=== PATIENT | female | born 1990 | race Hispanic/Latino ===

== ENCOUNTER 2018-04-26 21:35 | Emergency (ER) | payer MEDICAID ==
[2018-04-26 22:14] LABS: BASOPHILS % (AUTO) 0.5 % (0.0-5.0); EOSINOPHILS % (AUTO) 0.8 % (0.0-8.0); HEMATOCRIT 41.1 % (36-48); LYMPHOCYTES % (AUTO) 19.6 % (21.0-51.0); MEAN CORPUSCULAR HEMOGLOBIN 28.4 pg (27.0-33.0); MEAN CORPUSCULAR HGB CONC 32.8 g/dL (32.0-36.0); MEAN CORPUSCULAR VOLUME 86.7 fL (79-99); MONOCYTES % (AUTO) 6.1 % (3.0-13.0); PLATELET COUNT (AUTO) 299 K/uL (130-400); RED BLOOD CELL COUNT(AUTO) 4.74 MIL/uL (4.00-5.50); RED CELL DISTRIBUTION WIDTH 13.9 % (11.0-15.5); WHITE BLOOD COUNT (AUTO) 10.1 K/uL (4.8-10.8)
[2018-04-26 22:24] LABS: CREATININE 0.6 mg/dL (0.5-1.5); POTASSIUM 3.7 mmol/L (3.5-5.1)
[2018-04-26 22:49] LABS: ALBUMIN 3.6 g/dL (3.5-5.0); BILIRUBIN,TOTAL 0.3 mg/dL (0.2-1.0); TOTAL PROTEIN, SERUM 7.9 g/dL (6.0-8.3)
== END 2018-04-26 23:37 | disposition home or self-care (01) ==
LOC: EDH 21:35
DX: O20.9 Hemorrhage in early pregnancy, unspecified (principal); Z3A.08 8 weeks gestation of pregnancy; Z90.49 Acquired absence of other specified parts of digestive tract
CPT/HCPCS: 36415; 76801; 80053; 84702; 85025

== ENCOUNTER 2018-05-01 10:23 | Emergency (ER) | payer MEDICAID ==
[2018-05-01] MEDS ORDERED: SODIUM CHLORIDE 0.9% 1000ML 1,000 ML IV ONE (10:49)
[2018-05-01] MEDS ORDERED: ONDANSETRON HCL 4 MG/2 ML VIAL ONE (10:49)
[2018-05-01 11:10] LABS: CREATININE 0.7 mg/dL (0.5-1.5); POTASSIUM 4.1 mmol/L (3.5-5.1)
[2018-05-01 11:20] LABS: BASOPHILS % (AUTO) 0.6 % (0.0-5.0); EOSINOPHILS % (AUTO) 1.3 % (0.0-8.0); HEMATOCRIT 36.9 % (36-48); LYMPHOCYTES % (AUTO) 19.3 % (21.0-51.0); MEAN CORPUSCULAR HEMOGLOBIN 29.9 pg (27.0-33.0); MEAN CORPUSCULAR HGB CONC 34.4 g/dL (32.0-36.0); MEAN CORPUSCULAR VOLUME 86.7 fL (79-99); MONOCYTES % (AUTO) 5.7 % (3.0-13.0); NEUTROPHILS % (AUTO) 73.1 % (40.0-77.0); NUCLEATED RED BLOOD CELLS 0.1 % (0.0-0.19); PLATELET COUNT (AUTO) 349 K/uL (130-400); RED BLOOD CELL COUNT(AUTO) 4.25 MIL/uL (4.00-5.50); RED CELL DISTRIBUTION WIDTH 14.2 % (11.0-15.5); WHITE BLOOD COUNT (AUTO) 10.5 K/uL (4.8-10.8)
[2018-05-01] MEDS ORDERED: ACETAMINOPHEN 120 MG SUPPOSITORY RC ONE (13:12)
[2018-05-01] MEDS ORDERED: LORAZEPAM 2 MG/ML 1 ML VIAL ONE (13:12)
== END 2018-05-01 13:04 | disposition home or self-care (01) ==
LOC: EDH 10:23
DX: O03.9 Complete or unspecified spontaneous abortion without complication (principal); Z3A.09 9 weeks gestation of pregnancy
CPT/HCPCS: 36415; 76817; 80048; 84702; 85025; 86850; 86900; 86901; 96361; 96374; 99285; J2405; J7030; J2060

== ENCOUNTER 2018-07-08 05:22 | Emergency (ER) | payer MEDICAID ==
[2018-07-08] MEDS ORDERED: LIDOCAINE HCL 2% VISCOUS 15 ML UDCUP ONE (06:18)
[2018-07-08] MEDS ORDERED: PENICILLIN G BENZATHINE LA 1.2 MILUNITS/2 ML SYG ONE (06:24)
== END 2018-07-08 06:46 | disposition home or self-care (01) ==
LOC: EDH 05:22
DX: J02.9 Acute pharyngitis, unspecified (principal); Z90.49 Acquired absence of other specified parts of digestive tract
CPT/HCPCS: 96372; 99283; J0561

== ENCOUNTER 2019-03-15 00:29 | Emergency (ER) | payer MEDICAID, OTHER ==
[2019-03-15] MEDS ORDERED: PREDNISONE 20 MG TABLET ONE (01:12)
== END 2019-03-15 01:25 | disposition home or self-care (01) ==
LOC: EDH 00:29
DX: L24.9 Irritant contact dermatitis, unspecified cause (principal)

== ENCOUNTER 2019-12-21 19:17 | Emergency (ER) | payer MEDICAID, OTHER ==
[2019-12-21 19:48] LABS: APPEARANCE,URINE Cloudy (CLEAR); BILIRUBIN,URINE Negative (NEGATIVE); COLOR,URINE Yellow (YELLOW); GLUCOSE, URINE (UA) Negative (NEGATIVE); KETONES,URINE Trace mg/dL (NEGATIVE); LEUKOCYTE ESTERASE ,URINE Large (NEGATIVE); NITRATE,URINE Negative (NEGATIVE); OCCULT BLOOD,URINE Large (NEGATIVE); PH,URINE 6.5 (5.0-8.0); PROTEIN,URINE Negative (NEGATIVE)
[2019-12-21 20:04] LABS: BASOPHILS % (AUTO) 0.3 % (0.0-5.0); EOSINOPHILS % (AUTO) 1.5 % (0.0-8.0); HEMATOCRIT 39.3 % (36-48); LYMPHOCYTES % (AUTO) 24.9 % (21.0-51.0); MEAN CORPUSCULAR HEMOGLOBIN 28.8 pg (27.0-33.0); MEAN CORPUSCULAR HGB CONC 33.6 g/dL (32.0-36.0); MEAN CORPUSCULAR VOLUME 85.6 fL (79-99); NEUTROPHILS % (AUTO) 66.9 % (40.0-77.0); PLATELET COUNT (AUTO) 346 K/uL (130-400); RED BLOOD CELL COUNT(AUTO) 4.59 MIL/uL (4.00-5.50); RED CELL DISTRIBUTION WIDTH 13.2 % (11.0-15.5); WHITE BLOOD COUNT (AUTO) 9.8 K/uL (4.8-10.8)
[2019-12-21 20:14] LABS: BACTERIA,URINE Few /HPF (None Seen)
[2019-12-21 20:15] LABS: SQUAMOUS EPITHELIAL CELL,UR Moderate /HPF (0-2)
[2019-12-21 20:16] LABS: MUCUS,URINE Few LPF (None Seen)
[2019-12-21 20:16] LABS: CREATININE 0.8 mg/dL (0.5-1.5); POTASSIUM 3.5 mmol/L (3.5-5.1)
[2019-12-21 20:19] LABS: INR 0.95 (0.85-1.15); PARTIAL THROMBOPLASTIN TIME 28.2 SEC (26.3-35.5); PROTHROMBIN TIME 10.3 SEC (9.6-11.6)
[2019-12-21 20:27] LABS: ALBUMIN 3.8 g/dL (3.5-5.0); BILIRUBIN,TOTAL 0.2 mg/dL (0.2-1.0); TOTAL PROTEIN, SERUM 7.9 g/dL (6.0-8.3)
== END 2019-12-21 22:05 | disposition home or self-care (01) ==
LOC: EDH 19:17
DX: O20.0 Threatened abortion (principal); Z3A.01 Less than 8 weeks gestation of pregnancy; Z90.49 Acquired absence of other specified parts of digestive tract
CPT/HCPCS: 36415; 76801; 80053; 81001; 84702; 85025; 85610; 85730; 86900; 86901; 87088

== ENCOUNTER 2020-08-12 10:31 | Observation (INO) | payer MEDICAID ==
[~2020-08-12] VITALS: Ht 149.9 cm; Wt 89.8 kg
[2020-08-12 11:05] LABS: APPEARANCE,URINE CLOUDY (CLEAR); BILIRUBIN,URINE NEGATIVE (NEGATIVE); COLOR,URINE YELLOW (YELLOW); GLUCOSE, URINE (UA) NEGATIVE (NEGATIVE); KETONES,URINE NEGATIVE (NEGATIVE); LEUKOCYTE ESTERASE ,URINE MODERATE (NEGATIVE); NITRATE,URINE NEGATIVE (NEGATIVE); OCCULT BLOOD,URINE NEGATIVE (NEGATIVE); PROTEIN,URINE NEGATIVE (NEGATIVE); UROBILINOGEN,URINE 0.2 mg/dL (0.2-1.0)
[2020-08-12 11:30] LABS: BACTERIA,URINE Moderate /HPF (None Seen); RBC,URINE 0-1 /HPF (0-1); SQUAMOUS EPITHELIAL CELL,UR Moderate /HPF (0-2)
== END 2020-08-12 11:48 | disposition home or self-care (01) ==
LOC: EDH 10:31 → LDH 10:32
PROVIDERS: ADMIT Specialist; ATTEND Specialist
DX: O62.9 Abnormality of forces of labor, unspecified (principal); Z90.49 Acquired absence of other specified parts of digestive tract; Z3A.38 38 weeks gestation of pregnancy
CPT/HCPCS: 59025; 81001; 87088; 99284; G0378

== ENCOUNTER 2020-08-20 10:38 | Inpatient (IN) | payer MEDICAID ==
[~2020-08-20] VITALS: Ht 157.5 cm; Wt 101.2 kg
[2020-08-20] MEDS ORDERED: LACTATED RINGERS 1000ML 1,000 ML IV ONE (10:58)
[2020-08-20 11:27] LABS: APPEARANCE,URINE Clear (CLEAR); BILIRUBIN,URINE Negative (NEGATIVE); COLOR,URINE Yellow (YELLOW); GLUCOSE, URINE (UA) Negative (NEGATIVE); KETONES,URINE Negative (NEGATIVE); LEUKOCYTE ESTERASE ,URINE Small (NEGATIVE); NITRATE,URINE Negative (NEGATIVE); OCCULT BLOOD,URINE Small (NEGATIVE); PH,URINE 7.5 (5.0-8.0); PROTEIN,URINE Negative (NEGATIVE); UROBILINOGEN,URINE 0.2 mg/dL (0.2-1.0)
[2020-08-20 11:38] LABS: BACTERIA,URINE Few /HPF (None Seen); RBC,URINE 0-1 /HPF (0-1); SQUAMOUS EPITHELIAL CELL,UR Moderate /HPF (0-2)
[2020-08-20 11:39] LABS: BASOPHILS % (AUTO) 0.2 % (0.0-5.0); EOSINOPHILS % (AUTO) 0.7 % (0.0-8.0); HEMATOCRIT 34.1 % (36-48); MEAN CORPUSCULAR HEMOGLOBIN 25.8 pg (27.0-33.0); MEAN CORPUSCULAR HGB CONC 32.3 g/dL (32.0-36.0); MEAN CORPUSCULAR VOLUME 79.9 fL (79-99); MONOCYTES % (AUTO) 6.6 % (3.0-13.0); NEUTROPHILS % (AUTO) 77.3 % (40.0-77.0); PLATELET COUNT (AUTO) 284 K/uL (130-400); RED BLOOD CELL COUNT(AUTO) 4.27 MIL/uL (4.00-5.50); RED CELL DISTRIBUTION WIDTH 14.7 % (11.0-15.5); WHITE BLOOD COUNT (AUTO) 9.6 K/uL (4.8-10.8)
[2020-08-20 11:51] LABS: INR 0.95 (0.85-1.15); PROTHROMBIN TIME 10.2 SEC (9.6-11.6)
[2020-08-20 11:52] LABS: PARTIAL THROMBOPLASTIN TIME 25.2 SEC (26.3-35.5)
[2020-08-20 11:54] LABS: ALBUMIN 2.3 g/dL (3.5-5.0); BILIRUBIN,TOTAL 0.1 mg/dL (0.2-1.0); CREATININE 0.6 mg/dL (0.5-1.5); TOTAL PROTEIN, SERUM 6.8 g/dL (6.0-8.3); URIC ACID 4.9 mg/dL (2.6-7.2)
[2020-08-20] MEDS ORDERED: LACTATED RINGERS 500 ML 500 ML IV PRN (18:45)
[2020-08-20] MEDS ORDERED: EPHEDRINE SULFATE 50 MG/ML AMPULE IVP PRN (18:45)
[2020-08-20] MEDS ORDERED: NALOXONE HCL 0.4 MG/1 ML ML IV PRN (18:45)
[2020-08-20 19:30] VITALS: BP 106/54
[2020-08-20] MEDS: LACTATED RINGERS 1000ML 1,000 ML IV PRN (20:19)
[2020-08-21] MEDS ORDERED: MEPERIDINE-PF 50 MG/ML SYG IVP ONE (00:15)
[2020-08-21] MEDS ORDERED: MEPERIDINE-PF 50 MG/ML SYG ONE (00:16)
[2020-08-21] MEDS: PROMETHAZINE HCL 25 MG/ML 1ML AMPULE IM SCH (00:25)
[2020-08-21] MEDS: LACTATED RINGERS 1000ML 1,000 ML IV PRN ×2 (01:15→22:27)
[2020-08-21] MEDS ORDERED: CEFAZOLIN SODIUM 1 GM VIAL ONE (08:42)
[2020-08-21] MEDS ORDERED: CEFAZOLIN SODIUM 1 GM VIAL IVP PRN (08:45)
[2020-08-21] MEDS ORDERED: CEFAZOLIN SODIUM 1 GM VIAL IVP ONE (08:58)
[2020-08-21] MEDS ORDERED: MORPHINE PF 100MG/10ML AMP IV ONE (08:59)
[2020-08-21] MEDS ORDERED: FENTANYL CITRATE PF 50 MCG/1 ML 2ML VIAL ONE ×2 (09:10→09:22)
[2020-08-21] MEDS ORDERED: MIDAZOLAM HCL 1 MG/ML 2ML VIAL ONE (09:11)
[2020-08-21 09:12] LABS: HEPATITIS Bs ANTIGEN SCREEN P Negative (Negative)
[2020-08-21] MEDS ORDERED: METHYLERGONOVINE MALEATE 0.2 MG/1 ML ML ONE (09:17)
[2020-08-21] MEDS ORDERED: CARBOPROST TROMETHAMINE 250 MCG/ML AMP IM ONE (09:19)
[2020-08-21] MEDS ORDERED: PROMETHAZINE HCL 25 MG/ML 1ML AMPULE IM PRN (10:00)
[2020-08-21] MEDS ORDERED: OXYTOCIN-LR 20 UNITS/1000 ML 1,000 ML IV PRN (10:00)
[2020-08-21] MEDS ORDERED: DEXTROSE 5 %-0.45 % NACL 1,000 ML IV PRN (10:00)
[2020-08-21] MEDS ORDERED: 0.9%NACL 10ML VIAL IVP PRN (10:00)
[2020-08-21] MEDS ORDERED: MEPERIDINE-PF 75 MG/ML SYG IM PRN (10:00)
[2020-08-21] MEDS ORDERED: MEPERIDINE-PF 25 MG/ML SYG ONE ×2 (10:04→10:28)
[2020-08-21] MEDS ORDERED: ONDANSETRON 4MG INJ ONE (10:28)
[2020-08-21] MEDS ORDERED: ONDANSETRON 4MG INJ IVP PRN (11:30)
[2020-08-21] MEDS ORDERED: DiphenhydrAMINE HCL 50 MG/ML VIAL IVP PRN (11:30)
[2020-08-21] MEDS ORDERED: NALOXONE HCL 0.4 MG/1 ML ML IVP PRN (11:30)
[2020-08-21] MEDS ORDERED: EPHEDRINE SULFATE 50 MG/ML AMPULE IVP PRN (11:30)
[2020-08-21 11:48] VITALS: BP 112/71
[2020-08-21] MEDS ORDERED: MV-M1TAB66 PO (12:46)
[2020-08-21] MEDS ORDERED: CEFAZOLIN SODIUM 1 GM VIAL IVP SCH (13:45)
[2020-08-21 16:10] VITALS: BP 103/54
[2020-08-21] MEDS: CEFAZOLIN SODIUM 1 GM VIAL IVP SCH (16:47)
[2020-08-21 19:05] VITALS: BP 87/61
[2020-08-21 23:07] VITALS: BP 120/58
[2020-08-22] MEDS: PROMETHAZINE HCL 25 MG/ML 1ML AMPULE IM SCH ×2 (00:15→04:45)
[2020-08-22] MEDS: CEFAZOLIN SODIUM 1 GM VIAL IVP SCH (00:46)
[2020-08-22 02:57] VITALS: BP 98/56
[2020-08-22] MEDS ORDERED: MEASLES/MUMPS/RUBELLA VACCINE, LIVE 0.5 ML/VIAL SQ ONE ×2 (03:15→04:34)
[2020-08-22] MEDS: ACETAMINOPHEN WITH CODEINE 1 TAB TAB PO PRN ×2 (05:44→15:28)
[2020-08-22 05:46] LABS: HEMATOCRIT 24.5 % (36-48); MEAN CORPUSCULAR HEMOGLOBIN 25.6 pg (27.0-33.0); MEAN CORPUSCULAR HGB CONC 31.4 g/dL (32.0-36.0); MEAN CORPUSCULAR VOLUME 81.4 fL (79-99); RED BLOOD CELL COUNT(AUTO) 3.01 MIL/uL (4.00-5.50); RED CELL DISTRIBUTION WIDTH 15.4 % (11.0-15.5); WHITE BLOOD COUNT (AUTO) 12.3 K/uL (4.8-10.8)
[2020-08-22] MEDS: LACTATED RINGERS 1000ML 1,000 ML IV PRN (06:21)
[2020-08-22 06:31] VITALS: BP 113/76
[2020-08-22] MEDS ORDERED: HYDROCODONE/ACETAMINOPHEN 5/325 MG TAB PO PRN (08:30)
[2020-08-22] MEDS ORDERED: BISACODYL 10 MG SUPP.RECT RC PRN (08:30)
[2020-08-22] MEDS ORDERED: ACETAMINOPHEN 500 MG TABLET PO PRN (08:30)
[2020-08-22] MEDS ORDERED: LANOLIN 30GM OINTMENT TP PRN (08:30)
[2020-08-22] MEDS: DOCUSATE SODIUM 100 MG CAP PO SCH ×2 (09:11→21:16)
[2020-08-22] MEDS: SIMETHICONE 80 MG TAB.CHEW PO PRN ×3 (09:11→17:32)
[2020-08-22] MEDS: IBUPROFEN 800 MG TAB PO SCH ×2 (09:12→17:29)
[2020-08-22 11:18] VITALS: BP 112/64
[2020-08-22 15:11] VITALS: BP 100/61
[2020-08-22 19:15] VITALS: BP 108/61
[2020-08-22 23:05] VITALS: BP 110/64
[2020-08-23] MEDS: IBUPROFEN 800 MG TAB PO SCH ×2 (01:45→10:34)
[2020-08-23 04:02] VITALS: BP 119/74
[2020-08-23] MEDS: SIMETHICONE 80 MG TAB.CHEW PO PRN (08:48)
[2020-08-23] MEDS: DOCUSATE SODIUM 100 MG CAP PO SCH (08:48)
[2020-08-23] MEDS: ACETAMINOPHEN WITH CODEINE 1 TAB TAB PO PRN (08:52)
[2020-08-23] MEDS ORDERED: ACET1TAB25 PO (09:51)
[2020-08-23] MEDS ORDERED: FERR325T22 PO (09:52)
== END 2020-08-23 11:10 | disposition home or self-care (01) | DRG 540 ==
LOC: EDH 10:38 → OBSVTOIN 10:39 → LDH 10:39 → WSH 08-21 11:45
PROVIDERS: ADMIT Specialist; ATTEND Specialist
PROC: 3E0134Z Introduction of Serum, Toxoid and Vaccine into Subcutaneous Tissue, Percutaneous Approach (ICD-10-PCS; 2020-08-21)
PROC: 10D00Z1 Extraction of Products of Conception, Low, Open Approach (ICD-10-PCS; principal; 2020-08-21 08:50)
DX: O76 Abnormality in fetal heart rate and rhythm complicating labor and delivery (principal); O69.81X0 Labor and delivery complicated by cord around neck, without compression, not applicable or unspecified; O14.03 Mild to moderate pre-eclampsia, third trimester; Z3A.39 39 weeks gestation of pregnancy; Z37.0 Single live birth; Z23 Encounter for immunization
CPT/HCPCS: 36415; 59510; 76805; 82948; 85027; 86901; 87340; 90707; A4314; A4344; G0378; J0690; J2175; J2210; J2250; J2274; J2405; J2590; J3010; J3490; J7120

== ENCOUNTER 2021-10-22 15:13 | Emergency (ER) | payer MEDICAID ==
[~2021-10-22] VITALS: Ht 149.9 cm; Wt 86.2 kg
[~2021-10-22 15:13] MED LIST: ACET1TAB25 PO; FERR325T22 PO; MV-M1TAB66 PO
[2021-10-22 15:15] VITALS: BP 123/75
[2021-10-22] MEDS ORDERED: HYDROXYZINE 25 MG TABLET PO ONE (15:30)
[2021-10-22 15:47] LABS: BASOPHILS % (AUTO) 0.2 % (0.0-5.0); EOSINOPHILS % (AUTO) 2.1 % (0.0-8.0); HEMATOCRIT 41.4 % (36-48); LYMPHOCYTES % (AUTO) 23.6 % (21.0-51.0); MEAN CORPUSCULAR HEMOGLOBIN 26.6 pg (27.0-33.0); MEAN CORPUSCULAR HGB CONC 32.4 g/dL (32.0-36.0); MEAN CORPUSCULAR VOLUME 82.3 fL (79-99); MONOCYTES % (AUTO) 6.2 % (3.0-13.0); NEUTROPHILS % (AUTO) 67.3 % (40.0-77.0); PLATELET COUNT (AUTO) 399 K/uL (130-400); RED BLOOD CELL COUNT(AUTO) 5.03 MIL/uL (4.00-5.50); RED CELL DISTRIBUTION WIDTH 13.9 % (11.0-15.5); WHITE BLOOD COUNT (AUTO) 8.8 K/uL (4.8-10.8)
[2021-10-22 15:51] LABS: APPEARANCE,URINE Clear (CLEAR); BILIRUBIN,URINE Negative (NEGATIVE); COLOR,URINE Yellow (YELLOW); GLUCOSE, URINE (UA) Negative (NEGATIVE); KETONES,URINE Negative (NEGATIVE); LEUKOCYTE ESTERASE ,URINE Trace (NEGATIVE); NITRATE,URINE Negative (NEGATIVE); OCCULT BLOOD,URINE Negative (NEGATIVE); PH,URINE 7.5 (5.0-8.0); PROTEIN,URINE Negative (NEGATIVE); UROBILINOGEN,URINE 0.2 mg/dL (0.2-1.0)
[2021-10-22 15:55] LABS: HCG,QUAL RESULT NEGATIVE (NEGATIVE)
[2021-10-22 15:57] LABS: BACTERIA,URINE Few /HPF (None Seen); RBC,URINE 0-1 /HPF (0-1); SQUAMOUS EPITHELIAL CELL,UR Few /HPF (0-2); WBC,URINE 0-1 /HPF (0-1)
[2021-10-22 16:15] LABS: BILIRUBIN,TOTAL 0.2 mg/dL (0.2-1.0); CREATININE 0.6 mg/dL (0.5-1.5); POTASSIUM 3.8 mmol/L (3.5-5.1); TOTAL PROTEIN, SERUM 8.4 g/dL (6.0-8.3)
[2021-10-22] MEDS ORDERED: HYDR-3421 PO (16:27)
== END 2021-10-22 16:37 | disposition home or self-care (01) ==
LOC: EDH 15:13
DX: F43.0 Acute stress reaction (principal); F45.9 Somatoform disorder, unspecified; Z59.00 Homelessness unspecified; E66.9 Obesity, unspecified; Z68.38 Body mass index [BMI] 38.0-38.9, adult
CPT/HCPCS: 36415; 80053; 81001; 81025; 85025